=== PATIENT | male | born 1975 | race Caucasian/White ===

== ENCOUNTER → 2023-04-15 07:57 | Outpatient (REF) | payer SELFPAY | LOC: HWRAD 07:57 | PROVIDERS: ATTENDING PHYSICIAN Family Medicine | DX: I10 Essential (primary) hypertension (principal); R07.89 Other chest pain | CPT/HCPCS: 75571 ==

== ENCOUNTER → 2023-07-23 09:13 | Outpatient (REF) | payer OTHER, SELFPAY | LOC: RCS 09:13 | PROVIDERS: ATTENDING PHYSICIAN Internal Medicine Cardiovascular Disease; FAMILY PHYSICIAN Family Medicine | DX: R06.09 Other forms of dyspnea (principal) | CPT/HCPCS: 93017; 93306; 93350 ==